=== PATIENT | male | born 1975 | race Two or more races ===

== ENCOUNTER 2019-05-23 07:04 | Emergency (ER) | payer MEDICAID ==
[~2019-05-23] VITALS: Ht 165.1 cm; Wt 63.5 kg
[2019-05-23 07:45] VITALS: BP 120/85
[2019-05-23] MEDS ORDERED: KETOROLAC TROMETH 60MG/2ML VIAL IM ONE (08:15)
== END 2019-05-23 08:49 | disposition home or self-care (01) ==
LOC: ER 07:04
DX: S39.012A Strain of muscle, fascia and tendon of lower back, initial encounter (principal); F17.210 Nicotine dependence, cigarettes, uncomplicated; F15.10 Other stimulant abuse, uncomplicated; F14.10 Cocaine abuse, uncomplicated; X50.3XXA Overexertion from repetitive movements, initial encounter; Y93.89 Activity, other specified; Y99.8 Other external cause status; Y92.89 Other specified places as the place of occurrence of the external cause
CPT/HCPCS: 81002; 96372; 99283; J1885

== ENCOUNTER 2020-02-25 14:24 | Emergency (ER) | payer MEDICAID ==
[~2020-02-25] VITALS: Ht 160 cm; Wt 63.5 kg
[2020-02-25 14:25] VITALS: BP 126/84
== END 2020-02-25 16:03 | disposition left against medical advice (07) ==
LOC: ER 14:24 → EDBD 14:24 → ER 16:03
DX: T40.1X1A Poisoning by heroin, accidental (unintentional), initial encounter (principal); S01.511A Laceration without foreign body of lip, initial encounter; Z53.21 Procedure and treatment not carried out due to patient leaving prior to being seen by health care provider; X58.XXXA Exposure to other specified factors, initial encounter; Y93.89 Activity, other specified; Y92.89 Other specified places as the place of occurrence of the external cause; Y99.8 Other external cause status

== ENCOUNTER 2020-05-01 04:15 | Emergency (ER) | payer MEDICAID ==
[~2020-05-01] VITALS: Ht 165.1 cm; Wt 63.5 kg
[2020-05-01] MEDS ORDERED: FLUORESCEIN SOD 1 MG TEST STRIP LEFTEYE ONE (07:15)
[2020-05-01] MEDS ORDERED: BUPIVACAINE 0.75% INJ 10ML MPV SDV IJ ONE (07:45)
[2020-05-01] MEDS ORDERED: TETRACAINE HCL 0.5% OPTH(EYE) SOLN 4ML LEFTEYE ONE (08:00)
[2020-05-01 08:57] VITALS: BP 102/59
== END 2020-05-01 09:05 | disposition home or self-care (01) ==
LOC: ER 04:15
DX: T26.12XA Burn of cornea and conjunctival sac, left eye, initial encounter (principal); S05.02XA Injury of conjunctiva and corneal abrasion without foreign body, left eye, initial encounter; F17.210 Nicotine dependence, cigarettes, uncomplicated; X08.8XXA Exposure to other specified smoke, fire and flames, initial encounter; Y93.89 Activity, other specified; Y92.89 Other specified places as the place of occurrence of the external cause; Y99.8 Other external cause status
CPT/HCPCS: 99283; J3490

== ENCOUNTER 2025-06-25 12:01 | Emergency (ER) | payer MEDICAID ==
[~2025-06-25] VITALS: Ht 172.7 cm; Wt 68.0 kg
--- NOTE | 2025-06-25 12:10 | ED.PDOC ---
HPI Comments 49y M who presents to the ED via EMS for chief complaint of chest pain. EMS states pt was being arrested after doing METH 45x minutes prior and states he started to have chest pain and EMS was called. Pt states he has been having constant, non-radiating, pressure like chest pain pain, with no associated exacerbating or relieving factors. Pt states he has been having chest pain for the past 3x days. Pt has history of METH use. Pt denies any other symptoms. Chief Complaint: chest pain Time Seen by MD: 12:08 Primary Care Provider: NONE Reviewed Notes: Medications, Allergies Allergies: Coded Allergies: NO KNOWN ALLERGIES (Unverified , 01/28/16) Information Source: Patient, Emergency Med Personnel Mode of Arrival: EMS Brought in by: EMS Past Medical History PAST MEDICAL HISTORY: Denies Surgical History: Denies all surgeries Family History Family History: No family hx of Cancer, Family hx of heart keely Family History (Other): [place] Palsy Social History Smoker: Cigarettes, Greater Than 1 Pack/Day Alcohol: Occasionally Drugs: Cocaine, Methamphetamine, Other Lives In: Home Constitutional: denies: chills, diaphoresis, fatigue, fever, malaise, sweats, weakness, others EENTM: denies: blurred vision, double vision, ear bleeding, ear discharge, ear drainage, ear pain, ear ringing, eye pain, eye redness, hearing loss, mouth pain, mouth swelling, nasal discharge, nose bleeding, nose congestion, nose pain, photophobia, tearing, throat pain, throat swelling, voice changes, others Respiratory: denies: cough, hemoptysis, orthopnea, SOB at rest, shortness of breath, SOB with excertion, stridor, wheezing, others Cardiovascular: reports: chest pain; denies: dizzy spells, diaphoresis, Dyspnea on exertion, edema, irregular heart beat, left arm pain, lightheadedness, palpitations, PND, syncope, others Gastrointestinal: denies: abdomen distended, abdominal pain, blood streaked bowels, constipated, diarrhea, dysphagia, difficulty swallowing, hematemesis, melena, nausea, poor appetite, poor fluid intake, rectal bleeding, rectal pain, vomiting, others Genitourinary: denies: burning, dysuria, flank pain, frequency, hematuria, incontinence, penile discharge, penile sore, pain, testicle pain, testicle swelling, urgency, others Neurological: denies: dizziness, fainting, headache, left sided numbness, left sided weakness, numbness, paresthesia, pre-existing deficit, right sided numbness, right sided weakness, seizure, speech problems, tingling, tremors, we akness, others Musculoskeletal: denies: back pain, gout, joint pain, joint swelling, muscle pain, muscle stiffness, neck pain, others Integumetry: denies: bruises, change in color, change in hair/nails, dryness, laceration, lesions, lumps, rash, wounds, others Allergic/Immunocompromised: denies: Difficulty Healing, Frequent Infections, Hives, Itching, others Hematologic/Lymphatic: denies: anemia, blood clots, easy bleeding, easy bruising, swollen glands, others Endocrine: denies: excessive hunger, excessive sweating, excessive thirst, excessive urination, flushing, intolerance to cold, intolerance to heat, unexplained weight gain, unexplained weight loss, others Psychiatric: denies: anxiety, bipolar disorder, depression, hopeless, panic disorder, schizophrenia, sleepless, suicidal, others All Other Systems: Reviewed and Negative Physical Exam General Appearance: Moderate Distress HEENT: Normal ENT Inspection, Pharynx Normal, TMs Normal Neck: Full Range of Motion, Non-Tender, Normal, Normal Inspection Respiratory: Chest Non-Tender, Lungs Clear, No Accessory Muscle Use, No Respiratory Distress, Normal Breath Sounds Cardiovascular: No Edema, No JVD, No Murmur, No Gallop, Normal Peripheral Pulses, Regular Rate/Rhythm Breast Exam: Deferred Gastrointestinal: No Organomegaly, Non Tender, No Pulsatile Mass, Normal Bowel Sounds, Soft Genitalia: Deferred Pelvic: Deferred Rectal: Deferred Extremities: No calf tenderness, Normal capillary refill, Normal inspection, Normal range of motion, Non-tender, No pedal edema Musculoskeletal : Apperance: Normal Neurologic: Alert, alarm security or surveillance monitor II-XII nml as Tested, No Motor Deficits, Normal Affect, Normal Mood, No Sensory Deficits Cerebellar Function: Normal Reflexes: Normal Skin: Dry, Normal Color, Warm Peripheral Pulses: 3+ Radial (R), 3+ Radial (L) Lymphatic: No Adenopathy Was a procedure done? Was a procedure done?: No CP Differential Dx Differential Diagnosis: A-fib, A-Flutter, Angina, Atrial Dysrhythmia, AV Block 1st Degree, Electrolyte Disorder, PVC's Other Differential Diagnosis METH use disorder, drug use, Differential Diagnosis: HTN Essential X-Ray, Labs, Meds, VS Vital Signs Date Time Temp Pulse Resp B/P (MAP) Pulse Ox O2 Delivery O2 Flow Rate FiO2 06/25/25 12:54 98.7 85 16 130/95 100 98.7 06/25/25 12:04 89 Lab Test 06/25/25 12:09 Range/Units Troponin I High Sensitivity Pending Patient alert. Complaining of chest pain. Did use drugs prior to coming to the ER. Vitals stable. Uses methamphetamine. Heart rate within normal limits. Counseled patient on effects of smoking for 15 minutes. EKG reviewed does not show any acute changes. Explained to the patient. Was told to follow up with his primary care physician. Was told to come back if there is any problem. Time of 1ST Reevaluation: 12:40 Reevaluation 1ST: Improved Patient Education/Counseling: Diagnosis, Treatment Family Education/Counseling: No Family Present SEPSIS Sepsis Screen Physician Orders Electrocardigram (06/25/25 12:36) Electrocardigram (06/25/25 13:36) Electrocardigram (06/25/25 15:36) Vital Signs Date Time Temp Pulse Resp B/P (MAP) Pulse Ox O2 Delivery O2 Flow Rate FiO2 06/25/25 12:54 98.7 85 16 130/95 100 98.7 06/25/25 12:04 89 Departure 1 Departure Time of Disposition: 12:42 Impression: Primary Impression: Methamphetamine abuse Additional Impression: Musculoskeletal chest pain Disposition: HOME / SELF CARE / HOMELESS Condition: Good Discharged With: Self Critical Care Note Critical Care Time?: No Stability Stability form required: No Heart Score Heart Score: Heart Score Response (Comments) Value History Slightly Suspicious 0 EKG Normal 0 Age 45-64 1 Risk Factors No known risk factors 0 Troponin Normal limit 0 Total 1 I personally scribed for ODILON GARCÍA MD ([email or web address]) on 06/25/25 at 12:10. Electronically submitted by Brock Levi ([email or web address]). ODILON GARCÍA MD Jun 25, 2025 12:10
[2025-06-25 15:32] VITALS: BP 156/76; PULSE 89; RESP 18; TEMP 98.7; O2SAT 99
--- NOTE | 2025-06-26 08:28 | ECG ---
[facility] Test Date: 2025-06-25 Test Time: 12:04:04 Pat Name: MARIJA OROPEZA Department: [facility] ED Patient ID: [id number] Room: Gender: Emu Farmer: isaiah : 1975 Requested By: ODILON GARCÍA Order Number: [id number] Reading MD: Armando Alfaro Measurements Intervals [place] Rate: 89 P: 68 IA: 159 QRS: 76 QRSD: 95 T: 58 QT: 380 QTc: 463 Interpretive Statements Sinus rhythm Electronically Signed On 06-26-2025 10:33:15 PST by Armando Alfaro Please click the below link to view image of tracing.
== END 2025-06-25 12:37 | disposition left against medical advice (07) ==
LOC: ER 12:01 → EDUNIT# 12:01 → EDBD 12:01 → ER 12:37
DX: F15.10 Other stimulant abuse, uncomplicated (principal); M79.18 Myalgia, other site; F17.210 Nicotine dependence, cigarettes, uncomplicated; Z79.899 Other long term (current) drug therapy
CPT/HCPCS: 36415; 84484; 93005